=== PATIENT | female | born 1955 | race Caucasian/White ===

== ENCOUNTER 2019-06-23 19:21 | Emergency (ER) | payer OTHER ==
[2019-06-23 19:25] VITALS: TEMP 98.2; BMI 25.3
--- NOTE | 2019-06-23 19:27 | PDOC ---
Rapid Medical Evaluation Time Seen by Provider: 06/23/19 19:22 Medical Evaluation: Allergies Allergy/AdvReac Type Severity Reaction Status Date / Time No Known Allergies Allergy Verified 11/13/15 18:42 06/23/19 19:22 Patient presents to ED with complaints of: tripped and hit her face and lip this am outside after initially landing on left knee, now with cut to upper inner lip, no dizziness or visual changes, also c/o left knee pain, no loc patient on brief exam: vss, eomi, noted linear superficial lac to upper inner lip fold Patient ordered for: none Patient to proceed to the ED Discharge Disposition - Diagnosis Fall Qualifiers: Encounter type: initial encounter Qualified Code(s): W19.XXXA - Unspecified fall, initial encounter - Discharge Dispostion Disposition: HOME Condition at time of disposition: Stable - Prescriptions Prescriptions: Lidocaine 5% Patch [Lidoderm -] 1 patch TP DAILY #7 patch Naproxen [Naprosyn -] 500 mg PO BID #14 tablet - Referrals Referrals: [facility] [place] [facility] [place] [Provider Group] Brandin Landry MD [Staff Physician] - - Patient Instructions Printed Discharge Instructions: DI for Contusion Additional Instructions: 1) Please follow-up with your primary care doctor in the next 2-3 days. Please call tomorrow to schedule a follow up appointment. If you cannot follow up with your doctor within 1 week please return to the Emergency Department for any urgent issues. 2) Your laboratory / imaging results were normal here in the ER. 3) If you have any worsening of symptoms or any other concerns, please return to the ER immediately. Return if worsening symptoms including fevers, headache, vomiting, visual or hearing disturbances, abdominal pain, chest pain, shortness of breath, syncope, dehydration, inability to take things by mouth/vomiting, altered mental status, or worsening concerning symptoms. 4) Please continue taking your home medications as directed. Your medications on discharge include Naproxen and Lidocaine patch. Side effects may include upset stomach, abdominal pain, vomiting, or diarrhea. Do not drink alcohol with your medications. 1) Por favor, kala un seguimiento con alexander mdico de atencin primaria en los prximos 2-3 lacey. Por favor llame maana para programar jaron ra de seguimiento. Si no puede hacer un seguimiento con alexander mdico dentro de 1 semana, por favor regrese al Departamento de Emergencias para cualquier problema urgente. 2) Los resultados de alexander laboratorio/imgenes fueron normales aqu en Urgencias. 3) Si tiene algn empeoramiento de los sntomas o cualquier otra preocupacin, por favor regrese a la urgencia inmediatamente. Regrese si empeora los sntomas roxane fiebre, dolor de miles, vmitos, trastornos visuales o auditivos, dolor abdominal, dolor en el pecho, dificultad para respirar, sncope, deshidratacin , incapacidad para maribeth cosas por va oral/vmitos, alteracin del estado mental o empeoramiento sntomas. 4) Por favor, contine tomando betty medicamentos caseros segn las instrucciones. Los medicamentos para el ghanshyam incluyen Naproxeno y parche de lidocana. Los efectos secundarios pueden incluir malestar estomacal, dolor abdominal, vmitos o diarrea. No sudeep alcohol con betty medicamentos. Print Language: CUBAN - Post Discharge Activity
--- NOTE | 2019-06-23 20:03 | PDOC ---
History of Present Illness - General Chief Complaint: Injury Stated Complaint: FALL/PAIN TO MOUTH/SHOULDERS/LEGS Time Seen by Provider: 06/23/19 19:22 - History of Present Illness Initial Comments: 06/23/19 19:59 63 y/o F with PMH of HTN and DM presents for evaluation after a mechanical trip and fall this morning in her hallway, no LOC post injury vomiting or WOMACK she does have facial and nose pain, she did have a bloody nose. B knee pain and back pain Past History - Past Medical History Allergies/Adverse Reactions: Allergies Allergy/AdvReac Type Severity Reaction Status Date / Time No Known Allergies Allergy Verified 06/23/19 19:25 COPD: No Diabetes: Yes (not on medications) HTN: Yes - Surgical History Appendectomy: Yes Cholecystectomy: Yes - Suicide/Smoking/Psychosocial Hx Smoking History: Never smoked Have you smoked in the past 12 months: No Hx Alcohol Use: No Drug/Substance Use Hx: No Substance Use Type: None Review of Systems - Review of Systems HEENTM: Yes: Nose Pain Musculoskeletal: Yes: Back Pain, Joint Pain *Physical Exam - Vital Signs Last Vital Signs Temp Pulse Resp BP Pulse Ox 98.2 F 78 18 190/80 H 100 06/23/19 19:22 06/23/19 19:22 06/23/19 19:22 06/23/19 19:22 06/23/19 19:22 - Physical Exam General Appearance: Yes: Appropriately Dressed. No: Apparent Distress HEENT: positive: EOMI, Normal ENT Inspection, Symmetrical Neck: positive: Trachea midline Respiratory/Chest: positive: Chest Tender, Normal Breath Sounds. negative: Respiratory Distress Cardiovascular: positive: Regular Rate, S1, S2 Gastrointestinal/Abdominal: positive: Soft. negative: Tender Extremity: positive: Tender, Other (B knees ) Integumentary: positive: Normal Color, Dry ED Treatment Course - RADIOLOGY Radiology Studies Ordered: Category Date Time Status ABDOMEN & PELVIS CT W/O CONTR [CT] Stat CT Scan 06/23/19 19:[address] WITHOUT CONTRAST [CT] Stat CT Scan 06/23/19 19:[address] W/O CONTRAST [CT] Stat CT Scan 06/23/19 19:[address] WITHOUT CONTRAST [CT] Stat CT Scan 06/23/19 19:56 Ordered KNEE 3 POS-LEFT [RAD] Stat Radiology 06/23/19 19:56 Ordered KNEE 3 POS-RIGHT [RAD] Stat Radiology 06/23/19 19:56 Ordered Medical Decision Making - Medical Decision Making 06/23/19 20:02 I will transfer this hypertensive poly trauma patient to the main ER *DC/Admit/Observation/Transfer Diagnosis at time of Disposition: Fall - Referrals - Patient Instructions - Post Discharge Activity
[2019-06-23] MEDS ORDERED: ACETAMINOPHEN 500 MG TABLET (FP) PO ONE (20:14)
[2019-06-23] MEDS ORDERED: ACETAMINOPHEN 500 MG TABLET (FP) ONE (20:18)
[2019-06-23 21:01] LABS: BASO % 0.7 % (0-2.0); EOS % 2.4 % (0-4.5); HEMATOCRIT 36.2 % (32.4-45.2); HEMOGLOBIN 11.9 GM/dL (10.7-15.3); LYMPH % 46.3 % (8-40); MCHC 32.8 g/dl (32.0-36.0); MEAN CELL VOLUME 85.6 fl (80-96); MEAN PLT VOLUME 8.7 fl (7.5-11.1); MONO % 7.1 % (3.8-10.2); NEUT % 43.5 % (42.8-82.8); PLATELET COUNT 252 K/MM3 (134-434); RBC 4.23 M/mm3 (3.60-5.2); RDW 13.3 % (11.6-15.6); WHITE BLOOD COUNT 9.5 K/mm3 (4.0-10.0)
[2019-06-23 21:12] LABS: INR 1.03 (0.83-1.09); PROTHROMBIN TIME (PATIENT) 12.2 SEC (9.7-13.0)
--- NOTE | 2019-06-23 21:23 | PDOC ---
*Physical Exam - Vital Signs Last Vital Signs Temp Pulse Resp BP Pulse Ox 98.2 F 78 18 190/80 H 100 06/23/19 19:22 06/23/19 19:22 06/23/19 19:22 06/23/19 19:22 06/23/19 19:22 - Physical Exam Comments: 06/23/19 22:01 Gen: [id number], uncomfortable heent: perrl, eomi, no septal hematoma, posterior pharynx clear neck: supple, no midline ttp heart: +s1s2 reg lungs: cta b/l, rib ttp abd: soft, nt/nd +bs ext: no c/c/e, knee ttp back: no cva ttp, low back ttp paraspinal- no stepoffs or deformities, sits up neuro: cn ii-xii grossly intact, no focal deficits ED Treatment Course - LABORATORY CBC & Chemistry Diagram: 06/23/19 20:51 06/23/19 20:51 - ADDITIONAL ORDERS Additional order review: Laboratory Results 06/23/19 20:51 PT with INR 12.20 INR 1.03 06/23/19 20:51 RBC 4.23 MCV 85.6 MCHC 32.8 RDW 13.3 MPV 8.7 Neutrophils % 43.5 Lymphocytes % 46.3 H Monocytes % 7.1 Eosinophils % 2.4 Basophils % 0.7 - Medications Given in the ED: ED Medications Discontinued Medications Generic Name Dose Route Start Last Admin Trade Name Freq PRN Reason Stop Dose Admin Acetaminophen 1,000 mg 06/23/19 20:14 06/23/19 20:24 Tylenol - PO 06/23/19 20:15 1,000 mg ONCE ONE Administration Medical Decision Making - Medical Decision Making 06/23/19 21:22 pt upgraded from fast track for further eval of fall pending labs and imaging 06/23/19 21:23 cbc reviewed and stable 06/23/19 21:[address] neg 06/23/19 21:37 facial bones, cspine neg xray knees prelim without fx, djd pending ct c/a/p 06/23/19 22:03 no acute findings on ct pending ua 06/23/19 22:04 mild b/l upj obstruction at renal pelvis no cva ttp ua pending will need urology follow up as outpt 06/23/19 22:41 ua neg will need urology follow up stable for dc to home *DC/Admit/Observation/Transfer Diagnosis at time of Disposition: Fall Qualifiers: Encounter type: initial encounter Qualified Code(s): W19.XXXA - Unspecified fall, initial encounter - Discharge Dispostion Disposition: HOME Condition at time of disposition: Stable - Prescriptions Prescriptions: Lidocaine 5% Patch [Lidoderm -] 1 patch TP DAILY #7 patch Naproxen [Naprosyn -] 500 mg PO BID #14 tablet - Referrals Referrals: [facility] [place] Internal [facility] at [place] [Provider Group] Branidn Landry MD [Staff Physician] - - Patient Instructions Printed Discharge Instructions: DI for Contusion Additional Instructions: 1) Please follow-up with your primary care doctor in the next 2-3 days. Please call tomorrow to schedule a follow up appointment. If you cannot follow up with your doctor within 1 week please return to the Emergency Department for any urgent issues. 2) Your laboratory / imaging results were normal here in the ER. 3) If you have any worsening of symptoms or any other concerns, please return to the ER immediately. Return if worsening symptoms including fevers, headache, vomiting, visual or hearing disturbances, abdominal pain, chest pain, shortness of breath, syncope, dehydration, inability to take things by mouth/vomiting, altered mental status, or worsening concerning symptoms. 4) Please continue taking your home medications as directed. Your medications on discharge include Naproxen and Lidocaine patch. Side effects may include upset stomach, abdominal pain, vomiting, or diarrhea. Do not drink alcohol with your medications. 1) Por favor, kala un seguimiento con alexander mdico de atencin primaria en los prximos 2-3 lacey. Por favor llame maana para programar jaron ra de seguimiento. Si no puede hacer un seguimiento con alexander mdico dentro de 1 semana, por favor regrese al Departamento de Emergencias para cualquier problema urgente. 2) Los resultados de alexander laboratorio/imgenes fueron normales aqu en Urgencias. 3) Si tiene algn empeoramiento de los sntomas o cualquier otra preocupacin, por favor regrese a la urgencia inmediatamente. Regrese si empeora los sntomas roxane fiebre, dolor de miles, vmitos, trastornos visuales o auditivos, dolor abdominal, dolor en el pecho, dificultad para respirar, sncope, deshidratacin , incapacidad para maribeth cosas por va oral/vmitos, alteracin del estado mental o empeoramiento sntomas. 4) Por favor, contine tomando betty medicamentos caseros segn las instrucciones. Los medicamentos para el ghanshyam incluyen Naproxeno y parche de lidocana. Los efectos secundarios pueden incluir malestar estomacal, dolor abdominal, vmitos o diarrea. No sudeep alcohol con betty medicamentos. Print Language: KOREAN - Post Discharge Activity
[2019-06-23 21:31] LABS: ALBUMIN 3.8 g/dl (3.4-5.0); BILIRUBIN,TOTAL 0.2 mg/dL (0.2-1); BLOOD UREA NITROGEN 17.2 mg/dL (7-18); CALCIUM 8.9 mg/dL (8.5-10.1); CREATININE 0.8 mg/dL (0.55-1.3); POTASSIUM 4.4 mmol/L (3.5-5.1)
--- NOTE | 2019-06-23 21:49 | PDOC ---
*Physical Exam - Vital Signs Last Vital Signs Temp Pulse Resp BP Pulse Ox 98.2 F 78 18 190/80 H 100 06/23/19 19:22 06/23/19 19:22 06/23/19 19:22 06/23/19 19:22 06/23/19 19:22 - Physical Exam Comments: 06/23/19 21:45 General Appearance: Nourished. No Apparent Distress HEENT: EOMI, MARIE. Dried blood in the nares. No septal Hematoma. Hematoma noted to the mucosa of the upper lip. No Pharyngeal Erythema, Tonsillar Exudate, Tonsillar Erythema Neck: No Cervical Lymphadenopathy Respiratory/Chest: Lungs Clear, Normal Breath Sounds. No Crackles, Rales, Rhonchi, Wheezing Cardiovascular: Regular Rhythm, Regular Rate. No Murmur, Gallops, Rubs Gastrointestinal/Abdominal: Normal Bowel Sounds, Soft. No Guarding, Rebound, Tenderness Musculoskeletal: Lower back tenderness to palpation. No CVA Tenderness Extremity: Normal Capillary Refill Integumentary: Normal Color, Dry, Warm Neurologic: molecular genetic pathologist II-XII NML intact, Fully Oriented, Alert, Normal Mood/Affect, Normal Response, Motor Strength 5/5. Normal Finger to Nose and Heel to Walter ED Treatment Course - LABORATORY CBC & Chemistry Diagram: 06/23/19 20:51 06/23/19 20:51 - ADDITIONAL ORDERS Additional order review: Laboratory Results 06/23/19 06/23/19 20:51 20:51 PT with INR 12.20 INR 1.03 Sodium 143 Potassium 4.4 Chloride 110 H Carbon Dioxide 26 Anion Gap 8 BUN 17.2 Creatinine 0.8 Est GFR (CKD-EPI)AfAm 89.67 Est GFR (CKD-EPI)NonAf 77.37 Random Glucose 87 Calcium 8.9 Total Bilirubin 0.2 AST 15 ALT 16 Alkaline Phosphatase 71 Total Protein 7.0 Albumin 3.8 06/23/19 20:51 RBC 4.23 MCV 85.6 MCHC 32.8 RDW 13.3 MPV 8.7 Neutrophils % 43.5 Lymphocytes % 46.3 H Monocytes % 7.1 Eosinophils % 2.4 Basophils % 0.7 - Medications Given in the ED: ED Medications Discontinued Medications Generic Name Dose Route Start Last Admin Trade Name Freq PRN Reason Stop Dose Admin Acetaminophen 1,000 mg 06/23/19 20:14 09/18/19 20:24 Tylenol - PO 06/23/19 20:15 1,000 mg ONCE ONE Administration Progress Note - Progress Note Progress Note: The patient is a 63 year old female who experienced a trip and fall earlier this morning. She presents for further evaluation. She notes that she fell and struck her head with nasal bleeding at the time. She currently complains of facial pain, left shoulder pain, and lower back pain. She otherwise denies LOC, SOB, nausea, vomiting, abdominal pain, numbness, tingling, or weakness. The patient is pending lab and CT imaging. Medical Decision Making - Medical Decision Making 06/23/19 22:39 CBC, cmp, UA are unremarkable. Head, cervical and facial CT are unremarkable as read by our radiologist. Chest CT is unremarkable as read by our radiologist. Abdomen/pelvis CT demonstrates no acute process but demonstrates renal pelvis dilation as read by our radiologist. We are comfortable discharging the patient home in stable condition. Patient and family made aware of impression and plan, return precautions discussed including but not limited to worsening pain or symptoms, fevers, or signs of infection, chest pain, respiratory distress, inability to tolerate oral intake, dehydration, syncope, or neurologic changes. The patient is to follow up with PMD and specialist as recommended within 1 week, follow up information provided and the patient will call for an appointment. The patient is to take medications as instructed for duration of time and continue with supportive care, avoid triggers and precipitants. Patient is safe for outpatient follow-up. *DC/Admit/Observation/Transfer Diagnosis at time of Disposition: Fall Qualifiers: Encounter type: initial encounter Qualified Code(s): W19.XXXA - Unspecified fall, initial encounter - Discharge Dispostion Disposition: HOME Condition at time of disposition: Stable - Prescriptions Prescriptions: Lidocaine 5% Patch [Lidoderm -] 1 patch TP DAILY #7 patch Naproxen [Naprosyn -] 500 mg PO BID #14 tablet - Referrals Referrals: [facility] [place] Internal Med at [place] [Provider Group] Brandin Landry MD [Staff Physician] - - Patient Instructions Printed Discharge Instructions: DI for Contusion Additional Instructions: 1) Please follow-up with your primary care doctor in the next 2-3 days. Please call tomorrow to schedule a follow up appointment. If you cannot follow up with your doctor within 1 week please return to the Emergency Department for any urgent issues. 2) Your laboratory / imaging results were normal here in the ER. 3) If you have any worsening of symptoms or any other concerns, please return to the ER immediately. Return if worsening symptoms including fevers, headache, vomiting, visual or hearing disturbances, abdominal pain, chest pain, shortness of breath, syncope, dehydration, inability to take things by mouth/vomiting, altered mental status, or worsening concerning symptoms. 4) Please continue taking your home medications as directed. Your medications on discharge include Naproxen and Lidocaine patch. Side effects may include upset stomach, abdominal pain, vomiting, or diarrhea. Do not drink alcohol with your medications. 1) Por favor, kala un seguimiento con alexander mdico de atencin primaria en los prximos 2-3 lacey. Por favor llame maana para programar jaron ra de seguimiento. Si no puede hacer un seguimiento con alexander mdico dentro de 1 semana, por favor regrese al Departamento de Emergencias para cualquier problema urgente. 2) Los resultados de alexander laboratorio/imgenes fueron normales aqu en Urgencias. 3) Si tiene algn empeoramiento de los sntomas o cualquier otra preocupacin, por favor regrese a la urgencia inmediatamente. Regrese si empeora los sntomas roxane fiebre, dolor de miles, vmitos, trastornos visuales o auditivos, dolor abdominal, dolor en el pecho, dificultad para respirar, sncope, deshidratacin , incapacidad para maribeth cosas por va oral/vmitos, alteracin del estado mental o empeoramiento sntomas. 4) Por favor, contine tomando betty medicamentos caseros segn las instrucciones. Los medicamentos para el ghanshyam incluyen Naproxeno y parche de lidocana. Los efectos secundarios pueden incluir malestar estomacal, dolor abdominal, vmitos o diarrea. No sudeep alcohol con betty medicamentos. Print Language: ROMANIAN - Post Discharge Activity
[2019-06-23] MEDS ORDERED: LIDOCAINE 5% TOPICAL PATCH TP ONE (21:55)
[2019-06-23] MEDS ORDERED: IBUPROFEN 600 MG TABLET (FP) PO ONE ×2 (22:05→22:21)
[2019-06-23] MEDS ORDERED: LIDOCAINE 5% TOPICAL PATCH ONE (22:06)
[2019-06-23 22:21] LABS: URINE APPEARANCE CLEAR; URINE BILIRUBIN NEGATIVE (NEGATIVE); URINE COLOR YELLOW; URINE GLUCOSE (UA) NEGATIVE (NEGATIVE); URINE KETONE NEGATIVE (NEGATIVE); URINE LEUK ESTERASE NEGATIVE (NEGATIVE); URINE NITRITE NEGATIVE (NEGATIVE); URINE PROTEIN NEGATIVE (NEGATIVE); URINE UROBILINOGEN 0.2 mg/dL (0.2-1.0)
[2019-06-23 22:36] VITALS: BP 176/69; PULSE 64
== END 2019-06-23 23:07 | disposition home or self-care (01) ==
LOC: JERFT 19:21 → JER 19:21
DX: S09.93XA Unspecified injury of face, initial encounter (principal); S01.511A Laceration without foreign body of lip, initial encounter; M54.5 Low back pain; M25.562 Pain in left knee; M25.561 Pain in right knee; W01.0XXA Fall on same level from slipping, tripping and stumbling without subsequent striking against object, initial encounter; Y93.89 Activity, other specified; Y92.038 Other place in apartment as the place of occurrence of the external cause; Y99.8 Other external cause status; I10 Essential (primary) hypertension; E11.9 Type 2 diabetes mellitus without complications
CPT/HCPCS: 36415; 70450-TC; 70486-TC; 71250-TC; 72125-TC; 73562-TC-LT-FY; 73562-TC-RT-FY; 74176-TC; 80053; 81003; 85025; 85610; 86850; 86900; 86901; 99282-25

== ENCOUNTER 2021-05-26 06:17 | Emergency (ER) | payer OTHER ==
[2021-05-26 06:41] VITALS: BP 161/66; PULSE 74; TEMP 98.5; BMI 23.8
[2021-05-26] MEDS ORDERED: LIDOCAINE 5% TOPICAL PATCH TP ONE (07:14)
[2021-05-26] MEDS ORDERED: ACETAMINOPHEN 500 MG TABLET (FP) PO ONE (07:50)
[2021-05-26] MEDS ORDERED: morphine CARPU-JECT 2 MG/1 ML DISP.SYRIN IM ONE (07:52)
[2021-05-26] MEDS ORDERED: ACETAMINOPHEN 325 MG TABLET (FP) ONE (07:54)
[2021-05-26] MEDS ORDERED: LIDOCAINE 5% TOPICAL PATCH ONE (07:55)
[2021-05-26] MEDS ORDERED: MORPHINE SULFATE 2 MG/ML VIAL ONE (07:55)
== END 2021-05-26 08:59 | disposition home or self-care (01) ==
LOC: JER 06:17
PROC: 3E023GC Introduction of Other Therapeutic Substance into Muscle, Percutaneous Approach (ICD-10-PCS; principal; 2021-05-26)
DX: G62.9 Polyneuropathy, unspecified (principal)
CPT/HCPCS: 73610-TC-RT-FY; 73630-TC-RT-FY; 99284-25